=== PATIENT | female | born 1990 | race Caucasian/White ===

== ENCOUNTER 2017-07-14 19:41 | Emergency (ER) | payer OTHER, MEDICAID ==
[~2017-07-14] VITALS: Ht 167.6 cm; Wt 65.8 kg
[~2017-07-14 19:41] MED LIST: ACETAMINOPHEN-1 EAC1 PO; ALBUTEROL INH; ALBUTEROL INHAL17 GM IH; AMOXICILLIN 50500 MG PO; AUGMENTIN 875-1 EACH PO; BACTRIM DS TAB1 EACH PO; BACTROBAN15 GM TP; CEPACOL SORE T1 EAC8 PO; CIPROFLOXACIN500 M1 PO; DARVOCET-N 1001 EACH PO; DEPAKOTE500 MG PO; DEPO-PROVERA; DOXYCYCLINE 10100 MG PO; ERYTHROMYCIN E3.5 G1 OP; FLEXERIL PO; FLONASE 0.05%50 MCG NS; HYDROCODON-ACE1 EAC7 PO; HYDROCODONE-AP1 EAC6 PO; KEFLEX500 MG PO; LIDOCAINE VISC100 M1 MM; LORTABELXR PO; MICONAZOLE 745 GM VG; MUCINEX D TABL1 EAC1; NOHOMEMEDICATIONS; NORCO 5-325 TA1 EACH PO; PREDNISONE 20 M20 MG PO; PROAIR HFA8.5 GM INH; PROTONIX40 MG PO; SEROQUEL400 MG PO; SINGULAIR 10 MG10 M1; TRAMADOL HCL50 MG PO; TRINATE TABLET1 TAB; TRINATE TABLET1 TAB PO; TYLENOL EX-STR500 M2 PO; ULTRAM 50MG TAB50 MG PO; VENTOLIN HFA 1818 GM INH; VISTARIL 25 MG25 M1 PO; VYVANSE50 MG PO; ZANTAC 150MG T150 M1 PO; ZOFRAN ODT4 MG SUBLING; ZOFRAN4 MG PO; ZPAK PO
[2017-07-14] MEDS ORDERED: TRAMADOL 50 MG50 MG PO (20:44)
[2017-07-14] MEDS ORDERED: CYCLOBENZAPRINE5 MG PO (20:44)
[2017-07-14 20:51] VITALS: BP 122/78
== END 2017-07-14 20:52 | disposition home or self-care (01) ==
LOC: M.ERS 19:41
DX: S46.911A Strain of unspecified muscle, fascia and tendon at shoulder and upper arm level, right arm, initial encounter (principal); J45.909 Unspecified asthma, uncomplicated; F90.9 Attention-deficit hyperactivity disorder, unspecified type; F31.9 Bipolar disorder, unspecified; F17.210 Nicotine dependence, cigarettes, uncomplicated; F10.99 Alcohol use, unspecified with unspecified alcohol-induced disorder; Z88.8 Allergy status to other drugs, medicaments and biological substances; Z98.890 Other specified postprocedural states; X58.XXXA Exposure to other specified factors, initial encounter; Y93.89 Activity, other specified; Y92.89 Other specified places as the place of occurrence of the external cause; Y99.8 Other external cause status

== ENCOUNTER 2017-10-16 10:19 | Emergency (ER) | payer OTHER, MEDICAID ==
[~2017-10-16] VITALS: Ht 167.6 cm; Wt 58.5 kg
[~2017-10-16 10:19] MED LIST changes: +CYCLOBENZAPRINE5 MG PO; +TRAMADOL 50 MG50 MG PO
[2017-10-16] MEDS ORDERED: TRAMADOL 50 MG50 MG PO (11:00)
[2017-10-16 11:26] VITALS: BP 108/81
== END 2017-10-16 11:27 | disposition home or self-care (01) ==
LOC: M.ERS 10:19
DX: S63.591A Other specified sprain of right wrist, initial encounter (principal); J45.909 Unspecified asthma, uncomplicated; F90.9 Attention-deficit hyperactivity disorder, unspecified type; F31.9 Bipolar disorder, unspecified; M85.88 Other specified disorders of bone density and structure, other site; F17.210 Nicotine dependence, cigarettes, uncomplicated; Z88.6 Allergy status to analgesic agent; Z88.8 Allergy status to other drugs, medicaments and biological substances; W01.0XXA Fall on same level from slipping, tripping and stumbling without subsequent striking against object, initial encounter; Y93.89 Activity, other specified; Y92.89 Other specified places as the place of occurrence of the external cause; Y99.8 Other external cause status

== ENCOUNTER 2017-11-15 21:22 | Emergency (ER) | payer OTHER, MEDICAID ==
[~2017-11-15] VITALS: Ht 167.6 cm; Wt 55.8 kg
[2017-11-15] MEDS ORDERED: BUSPIRONE HCL10 MG (21:35)
[2017-11-15] MEDS ORDERED: WELLBUTRIN SR150 MG (21:35)
[2017-11-15] MEDS ORDERED: ULTRAM 50MG TAB50 MG PO (22:22)
[2017-11-15 22:57] VITALS: BP 98/52
== END 2017-11-15 22:59 | disposition home or self-care (01) ==
LOC: M.ERS 21:22
DX: S83.92XA Sprain of unspecified site of left knee, initial encounter (principal); J45.909 Unspecified asthma, uncomplicated; F90.9 Attention-deficit hyperactivity disorder, unspecified type; F31.9 Bipolar disorder, unspecified; M85.88 Other specified disorders of bone density and structure, other site; F17.210 Nicotine dependence, cigarettes, uncomplicated; Z88.6 Allergy status to analgesic agent; Z88.8 Allergy status to other drugs, medicaments and biological substances; W17.89XA Other fall from one level to another, initial encounter; Y93.89 Activity, other specified; Y92.89 Other specified places as the place of occurrence of the external cause; Y99.8 Other external cause status

== ENCOUNTER 2018-04-26 16:41 | Emergency (ER) | payer OTHER, MEDICAID ==
[~2018-04-26] VITALS: Ht 167.6 cm; Wt 50.4 kg
[~2018-04-26 16:41] MED LIST changes: +BUSPIRONE HCL10 MG; +WELLBUTRIN SR150 MG
[2018-04-26] MEDS ORDERED: KEFLEX500 M1 PO (17:09)
[2018-04-26 17:10] VITALS: BP 123/81
== END 2018-04-26 17:15 | disposition home or self-care (01) ==
LOC: M.ERS 16:41
DX: L03.011 Cellulitis of right finger (principal); J45.909 Unspecified asthma, uncomplicated; F31.9 Bipolar disorder, unspecified; Z90.49 Acquired absence of other specified parts of digestive tract; F17.210 Nicotine dependence, cigarettes, uncomplicated; Z88.6 Allergy status to analgesic agent; Z88.8 Allergy status to other drugs, medicaments and biological substances

== ENCOUNTER 2019-07-29 09:44 | Emergency (ER) | payer OTHER ==
[~2019-07-29] VITALS: Ht 167.6 cm; Wt 64.4 kg
[~2019-07-29 09:44] MED LIST changes: +KEFLEX500 M1 PO
[2019-07-29 09:59] VITALS: BP 108/61
[2019-07-29] MEDS ORDERED: TAMIFLU75 MG PO (10:08)
== END 2019-07-29 10:20 | disposition home or self-care (01) ==
LOC: M.ERS 09:44
DX: J11.1 Influenza due to unidentified influenza virus with other respiratory manifestations (principal); J45.909 Unspecified asthma, uncomplicated; F17.210 Nicotine dependence, cigarettes, uncomplicated; Z88.6 Allergy status to analgesic agent; Z88.8 Allergy status to other drugs, medicaments and biological substances; Z90.49 Acquired absence of other specified parts of digestive tract; Z98.51 Tubal ligation status

== ENCOUNTER 2019-08-07 19:14 | Emergency (ER) | payer OTHER ==
[~2019-08-07] VITALS: Ht 167.6 cm; Wt 63.5 kg
[~2019-08-07 19:14] MED LIST changes: +TAMIFLU75 MG PO
[2019-08-07 19:50] VITALS: BP 112/73
== END 2019-08-07 20:30 | disposition left against medical advice (07) ==
LOC: M.ERS 19:14
DX: Z53.21 Procedure and treatment not carried out due to patient leaving prior to being seen by health care provider (principal)

== ENCOUNTER 2019-09-27 17:13 | Emergency (ER) | payer OTHER ==
[~2019-09-27] VITALS: Ht 167.6 cm; Wt 68.0 kg
[2019-09-27 18:08] LABS: ABSOLUTE BASOPHILS 0.1 thou/uL (0.0-0.2); ABSOLUTE EOSINOPHILS 0.2 thou/uL (0.0-0.7); ABSOLUTE LYMPHOCYTES 3.3 thou/uL (0.8-5.3); ABSOLUTE MONOCYTES 0.5 thou/uL (0.0-1.2); ABSOLUTE NEUTROPHILS 6.4 thou/uL (1.6-8.1); BASOPHILS 0.7 %; EOSINOPHILS 1.8 %; HEMATOCRIT 41.1 % (37.0-47.0); HEMOGLOBIN 13.8 gm/dL (12.0-15.0); LYMPHOCYTES 31.8 %; MCH 28.6 pg (26.0-34.0); MCHC 33.6 g/dL (28.0-37.0); MCV 85.1 fL (80.0-100.0); MONOCYTES 4.5 %; MPV 7.4 fl. (7.2-11.1); NUCLEATED RBCS 0 /100WBC; PLATELET COUNT* 313 thou/uL (150-400); POLYS 61.2 %; RBC 4.83 mil/uL (4.20-5.00); RDW-CV 14.9 % (10.5-14.5); WBC 10.4 thou/uL (4.0-11.0)
[2019-09-27 18:15] LABS: URINE BILIRUBIN NEGATIVE (Negative); URINE BLOOD 3+ (Negative); URINE CLARITY CLEAR; URINE COLOR RED; URINE GLUCOSE-RANDOM NEGATIVE (Negative); URINE KETONES NEGATIVE (Negative); URINE LEUKOCYTES-REFLEX NEGATIVE (Negative); URINE NITRITE-REFLEX NEGATIVE (Negative); URINE PROTEIN 2+ (Negative); URINE SPECIFIC GRAVITY <= 1.005 (1.005-1.030); URINE UROBILINOGEN 0.2 E.U./dl (0.2-1.0)
[2019-09-27 18:17] LABS: CALCIUM 8.5 mg/dL (8.5-10.1); CREATININE 0.9 mg/dL (0.6-1.3); POTASSIUM 3.5 mmol/L (3.5-5.1)
[2019-09-27 18:22] LABS: ALBUMIN 4.1 g/dL (3.4-5.0); TOTAL BILIRUBIN 0.2 mg/dL (<0.1-1.0); TOTAL PROTEIN 8.2 g/dL (6.4-8.2)
[2019-09-27 18:27] LABS: BACTERIA-REFLEX 1-9 Few /HPF (None Seen); CASTS None Seen /LPF (None Seen); CRYSTALS None Seen /LPF (None Seen); MUCUS 4-6 Moderate strn/LPF (None Seen); SQUAMOUS 4-10 Moderate /LPF (0-3); URINE RBC >20 Many /HPF (0-2); URINE WBC-REFLEX 0-5 Rare /HPF (0-5)
[2019-09-27 19:19] VITALS: BP 106/62
== END 2019-09-27 19:21 | disposition home or self-care (01) ==
LOC: M.ERS 17:13
PROVIDERS: Physician Assistant
DX: N94.89 Other specified conditions associated with female genital organs and menstrual cycle (principal); N93.9 Abnormal uterine and vaginal bleeding, unspecified; J45.909 Unspecified asthma, uncomplicated; F90.9 Attention-deficit hyperactivity disorder, unspecified type; F31.9 Bipolar disorder, unspecified; F17.210 Nicotine dependence, cigarettes, uncomplicated; Z90.49 Acquired absence of other specified parts of digestive tract; Z98.51 Tubal ligation status; Z88.6 Allergy status to analgesic agent; Z88.8 Allergy status to other drugs, medicaments and biological substances

== ENCOUNTER 2020-09-20 15:10 | Emergency (ER) | payer OTHER ==
[~2020-09-20] VITALS: Ht 167.6 cm; Wt 56.7 kg
[2020-09-20] MEDS ORDERED: NORCO5 PO (18:03)
[2020-09-20] MEDS ORDERED: IBUPROFEN 800800 M1 PO (18:04)
[2020-09-20 18:39] VITALS: BP 125/70
== END 2020-09-20 18:40 | disposition home or self-care (01) ==
LOC: M.ERS 15:10
DX: S02.609A Fracture of mandible, unspecified, initial encounter for closed fracture (principal); J45.909 Unspecified asthma, uncomplicated; F17.210 Nicotine dependence, cigarettes, uncomplicated; Z90.49 Acquired absence of other specified parts of digestive tract; Z98.51 Tubal ligation status; Z88.6 Allergy status to analgesic agent; Z88.8 Allergy status to other drugs, medicaments and biological substances; W22.8XXA Striking against or struck by other objects, initial encounter; Y93.89 Activity, other specified; Y92.89 Other specified places as the place of occurrence of the external cause; Y99.8 Other external cause status

== ENCOUNTER 2021-06-05 20:13 | Emergency (ER) | payer OTHER ==
[~2021-06-05] VITALS: Ht 167.6 cm; Wt 59.0 kg
[~2021-06-05 20:13] MED LIST changes: +IBUPROFEN 800800 M1 PO; +NORCO5 PO
[2021-06-05] MEDS ORDERED: LIDOCAINE VISC100 ML SWISH&SPIT (20:57)
[2021-06-05] MEDS ORDERED: APAP W/CODEINE1 TA2 PO (20:57)
[2021-06-05] MEDS ORDERED: AMOXIL 875 MG875 M1 PO (20:57)
[2021-06-05 21:09] VITALS: BP 132/88
== END 2021-06-05 21:10 | disposition home or self-care (01) ==
LOC: M.ERS 20:13
DX: K04.7 Periapical abscess without sinus (principal); J45.909 Unspecified asthma, uncomplicated; F90.9 Attention-deficit hyperactivity disorder, unspecified type; F17.210 Nicotine dependence, cigarettes, uncomplicated; Z90.49 Acquired absence of other specified parts of digestive tract; Z98.51 Tubal ligation status; Z88.6 Allergy status to analgesic agent; Z88.5 Allergy status to narcotic agent